=== PATIENT | male | born 1995 | race Caucasian/White ===

== ENCOUNTER 2017-01-29 22:08 | Emergency (ER) | payer OTHER ==
[2017-01-29] MEDS ORDERED: Ketorolac 30 MG/ML SDV IM ONE (22:33)
--- NOTE | 2017-01-29 22:44 | EDM.PDOC ---
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 Patient states he was lifting something up in front of him when he felt sudden pain in his right shoulder. He says it's painful to move it at all but he doesn't think it's dislocated.] No swelling or bruising. Normal range of motion of the forearm wrist and elbow. he reports normal sensation of the arm Review of systems: As per history of present illness and below otherwise all systems reviewed and negative. Past medical history: As per history of present illness and as reviewed below otherwise noncontributory. Surgical history: As per history of present illness and as reviewed below otherwise noncontributory. Social history: No reported history of drug or alcohol abuse. Family history: As per history of present illness and as reviewed below otherwise noncontributory. Physical exam: Well-appearing patient no acute distress. No right shoulder deformity or ecchymosis. No bony tenderness. Nontender before meals joint. Humeral head and glenoid fossa. No anterior fullness subclavicular. No deltoid anesthesia. Normal painless range of motion of the wrist and elbow. HEENT: Normocephalic, atraumatic, pupils normal and symmetrical, supple neck, no meningismus, normal color Lungs: Normal and symmetrical chest wall excursion bilateral with no tachypnea or increased work of breathing, grossly normal chest exam Heart: No tachycardia in triage Abdomen: Normal-appearing, nondistended, no visible mass or asymmetry Pelvis: Normal-appearing Genitourinary: Deferred Rectal exam: Deferred Extremities: Atraumatic, normal use and range of motion, no visible evidence of gross neurovascular compromise Neuro: Awake, alert, oriented. Normal and appropriate mental status. Cranial nerves grossly unremarkable. Motor function normal. Nonfocal neurologic exam. Diagnostics: [X-ray of the right shoulder with chronic subluxation no dislocation or fracture.] Therapeutics: [Toradol IM and ice pack administered] Impression: [Right rotator cuff injury Right shoulder pain] Plan: [Signs and symptoms consistent with soft tissue injury. No clinical or radiographic evidence of dislocation however patient has known history of chronic subluxation. Sling applied and dispensed. Patient aware to use NSAIDs and ice and follow-up with PCP/ orthopedics as needed.] Definitive disposition and diagnosis as appropriate pending reevaluation and review of above. Right Shoulder Pain Score (Numeric/FACES): 7 - Related Data Allergies Allergy/AdvReac Type Severity Reaction Status Date / Time No Known Allergies Allergy Verified 01/29/17 22:21 Home Meds: Home Meds Sertraline [Zoloft] 25 mg PO DAILY 01/29/17 [History] risperiDONE 0 mg PO DAILY 01/29/17 [History] traZODone 50 mg PO BEDTIME 01/29/17 [History] Past Medical History Psychiatric History: Reports: Anxiety, Bipolar - Past Surgical History Musculoskeletal Surgical History: Reports: Arthroscopic Procedure, Shoulder Surgery Social & Family History - Family History Family Medical History: Noncontributory - Tobacco Use Smoking Status *Q: Current Every Day Smoker Years of Tobacco use: 8 Packs/Tins Daily: 1 - Recreational Drug Use Recreational Drug Use: No Review of Systems - Review of Systems Review Of Systems: See Below (History of present illness) ED EXAM, GENERAL - Physical Exam Exam: See Below (History of present illness) Course - Vital Signs Last Recorded V/S: Last Vital Signs Temp 36.6 C 01/29/17 22:23 Pulse 68 01/30/17 00:37 Resp 18 01/30/17 00:37 BP 124/70 01/30/17 00:37 Pulse Ox 97 01/30/17 00:37 - Orders/Labs/Meds Orders: Active Orders 24 hr Category Date Time Status Shoulder Comp Rt [CR] Stat Exams 01/29/17 22:28 Taken Meds: Medications Discontinued Medications Generic Name Dose Route Start Last Admin Trade Name Freq PRN Reason Stop Dose Admin Ketorolac Tromethamine 60 mg 01/29/17 22:33 01/30/17 00:29 Toradol IM 01/29/17 22:34 60 mg ONETIME ONE Administration Departure - Departure Time of Disposition: 00:09 Disposition: Home, Self-Care 01 Condition: Good Clinical Impression: Rotator cuff injury, Right shoulder pain - Discharge Information Instructions: Rotator Cuff Injury Referrals: [facility] [Outside] Forms: ED Department Discharge Additional Instructions: It appears that you have suffered a rotator cuff injury. As you mentioned you have chronic subluxation of your right shoulder. This means that the joint is not in the typical position but it's not dislocated either. Wear the sling and use an ice pack as needed for comfort remove the sling several times a day to gently range of motion your shoulder so as not to lose mobility. Take ibuprofen 800 mg every 6 hours and Tylenol also as needed for pain. Follow-up with Dr. Yamila Nichole our orthopedic doctor in 3 days. Avoid any strenuous use of the arm that causes pain until follow-up with orthopedics. - My Orders Last 24 Hours: My Active Orders 01/29/17 22:28 Shoulder Comp Rt [CR] Stat - Assessment/Plan Last 24 Hours: My Active Orders 01/29/17 22:28 Shoulder Comp Rt [CR] Stat
[2017-01-30 00:38] VITALS: BP 124/70
--- NOTE | 2017-01-30 10:52 | CR ---
EXAM DATE: 01/29/17 PATIENT'S AGE: 21 Patient: MALICK DAY Facility: [place], [place] Site . Site : 1995 Study: XRay Shoulder Right [id number] 10:56:08 PM Ordering Physician: Doctor Aaron Final Report: Indication: Shoulder injury Technique: Four views right shoulder Comparison: None Findings: Bones: Alignment is normal. No acute fracture subluxation. Joint spaces: Unremarkable. Soft tissues: Unremarkable. Impression: No acute abnormality. Dictated by Willa Thomas MD @ Jan 29 2017 11:15PM (Electronic Signature) Report Signed by Proxy. IVONE
== END 2017-01-30 00:57 | disposition home or self-care (01) ==
LOC: MW.ED 22:08
DX: S46.001A Unspecified injury of muscle(s) and tendon(s) of the rotator cuff of right shoulder, initial encounter (principal); F31.9 Bipolar disorder, unspecified; F17.210 Nicotine dependence, cigarettes, uncomplicated; Z79.899 Other long term (current) drug therapy; Z98.890 Other specified postprocedural states; X50.9XXA Other and unspecified overexertion or strenuous movements or postures, initial encounter
CPT/HCPCS: 73030; 96372; 99283; A4566; J1885